=== PATIENT | male | born 1985 | race African-American/Black ===

== ENCOUNTER 2022-08-20 12:29 | Emergency (ER) | payer MEDICAID ==
[~2022-08-20] VITALS: Ht 188 cm; Wt 81.6 kg
[2022-08-20 12:43] VITALS: BP 104/55
--- NOTE | 2022-08-20 12:51 | NUR ---
AT . SEEN BY KAYLEIGH.
[2022-08-20 13:29] LABS: BASOPHILS % (AUTO) 0.1 % (0.0-2.0); HEMATOCRIT 43.2 % (36-52); HEMOGLOBIN 14.4 g/dL (12.0-18.0); LYMPHOCYTES # (AUTO) 1.1 K/uL (2.0-11.5); LYMPHOCYTES % (AUTO) 10.7 % (20.5-51.1); MEAN CORPUSCULAR HEMOGLOBIN 30 pg (27-31); MEAN CORPUSCULAR HGB CONC 33 g/dL (33-37); MEAN CORPUSCULAR VOLUME 88.7 fL (80-94); MONOCYTES % (AUTO) 9.8 % (1.7-9.3); NEUTROPHILS # (AUTO) 8.4 K/uL (1.8-7.7); NEUTROPHILS % (AUTO) 79.4 % (42.2-75.2); PLATELET COUNT (AUTO) 279 K/uL (140-450); RED BLOOD CELL COUNT(AUTO) 4.87 MIL/uL (4.20-6.10); RED CELL DISTRIBUTION WIDTH 12.8 % (11.6-13.7); WHITE BLOOD COUNT (AUTO) 10.6 K/uL (4.8-10.8)
[2022-08-20 13:48] LABS: ANION GAP 11.9 (8-16); CREATININE 1.2 mg/dL (0.6-1.3); POTASSIUM 3.9 mmol/L (3.5-5.1)
[2022-08-20] MEDS ORDERED: KETOROLAC 15 MG/ML VIAL IVP ONE (14:05)
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
[2022-08-20] MEDS ORDERED: IBUP-1842 PO (14:37)
[2022-08-20] MEDS ORDERED: AMOX-999 PO (14:37)
[2022-08-20 15:54] VITALS: BP 108/67
--- NOTE | 2022-08-20 15:54 | NUR ---
Patient discharged with v/s stable. Written and verbal after care instructions given and explained. Patient alert, oriented and verbalized understanding of instructions. Ambulatory with to car. All questions addressed prior to discharge. ID band removed. Patient advised to follow up with PMD. Rx of AMOXICILLIN, MOTRIN given. Patient educated on indication of medication including possible reaction and side effects. Opportunity to ask questions provided and answered.
--- NOTE | 2022-08-20 17:54 | NUR ---
[facility] BUT PT HAD LEFT ALREADY
== END 2022-08-20 15:54 | disposition home or self-care (01) ==
LOC: MED 12:29
DX: S03.2XXA Dislocation of tooth, initial encounter (principal); Y04.8XXA Assault by other bodily force, initial encounter; Y93.89 Activity, other specified; Y92.89 Other specified places as the place of occurrence of the external cause; Y99.8 Other external cause status
CPT/HCPCS: 36415; 70450; 70486; 71045; 72125; 80048; 85025; 96374; 99291; G0482; J1885

== ENCOUNTER 2023-03-29 19:30 | Emergency (ER) | payer MEDICAID ==
[~2023-03-29] VITALS: Ht 185.4 cm; Wt 87.1 kg
[~2023-03-29 19:30] MED LIST: AMOX-999 PO; IBUP-1842 PO
[2023-03-29 20:08] VITALS: BP 117/70; PULSE 70; RESP 17; TEMP 98; O2SAT 98
[2023-03-29 22:34] LABS: APPEARANCE,URINE CLEAR (CLEAR); BILIRUBIN,URINE NEGATIVE (NEGATIVE); BLOOD, URINE NEGATIVE (NEGATIVE); COLOR,URINE YELLOW (YELLOW); LEUKOCYTE ESTERASE ,URINE NEGATIVE (NEGATIVE); NITRITE, URINE NEGATIVE (NEGATIVE); PROTEIN,URINE NEGATIVE (NEGATIVE); UGLUCOSE NEGATIVE (NEGATIVE); UROBILINOGEN,URINE 0.2 EU/dL (0.2 - 1)
[2023-03-29 23:45] VITALS: BP 110/68; PULSE 72; RESP 16; TEMP 98; O2SAT 98
== END 2023-03-29 23:45 | disposition home or self-care (01) ==
LOC: MED 19:30
DX: R31.9 Hematuria, unspecified (principal); Z79.899 Other long term (current) drug therapy
CPT/HCPCS: 81003; 99283